=== PATIENT | male | born 1980 | race Caucasian/White ===

== ENCOUNTER 2021-11-03 08:37 | Emergency (ER) | payer OTHER, MEDICAID, SELFPAY ==
[2021-11-03 09:08] LABS: Add Manual Diff / Slide Review NO; Basophils Absolute Auto 100 /uL (0-100); Basophils Percent Auto 0.9 % (0-2); Eosinophils Absolute Auto 200 /uL (0-450); Eosinophils Percent Auto 3.7 % (2-4); Hemoglobin 14.3 g/dL (13.5-17.5); Lymphocytes Absolute Auto 1700 /uL (1100-4500); Lymphocytes Percent Auto 26.2 % (25-40); Mean Corpuscular HGB Conc 34.1 % (30-36); Monocytes Absolute Auto 500 /uL (0-900); Monocytes Percent Auto 7.2 % (3-14); Neutrophils Absolute Auto 4000 /uL (1500-7000); Platelet Count 145 X10^3/uL (150-400); Red Blood Cell Count 4.62 X10^6/uL (4.5-5.9); White Blood Cell Count 6.5 X10^3/uL (4.5-11.0)
[2021-11-03 09:14] LABS: Alanine Aminotransferase 21 IU/L (<50); Albumin 4.2 g/dL (3.5-5.0); Albumin Globulin Ratio 1.5 (1.0-2.8); Alkaline Phosphatase 60 U/L (38-126); Aspartate Aminotransferase 25 IU/L (17-59); BUN Creatinine Ratio 15.8 (6-22); Bilirubin Total 0.3 mg/dL (0.2-1.3); Blood Urea Nitrogen 15 mg/dL (9-20); Calcium 9.1 mg/dL (8.4-10.2); Carbon Dioxide 30 mmol/L (22-32); Chloride 108 mmol/L (98-107); Estimated Glomerular Filt Rate > 60 mL/min (>60); Globulin 2.8 g/dL (1.7-4.1); Glucose 103 mg/dL (70-100); HEMOLYSIS < 15 (0-50); Lipase 68 U/L (23-300); Potassium 4.4 mmol/L (3.4-5.1); Sodium 141 mmol/L (137-145)
--- NOTE | 2021-11-03 09:18 | ED.ABDPAIN ---
HPI - Abdominal Pain General Chief Complaint: Abdominal Pain Stated Complaint: inside lower right side pain Time Seen by Provider: 11/03/21 08:51 History of Present Illness HPI narrative: Patient is a 40-year-old male history of schizophrenia controlled with marijuana presenting with 4 days of right upper back pain. He denies any injury lifting. It is nonradiating. He has taken Aleve intermittently for without any relief. Not going away. He related have any abdominal pain. No painful or frequent urination. Related Data Home Medications Medication Instructions Recorded Confirmed gabapentin 300 mg capsule ##0 02/10/16 (Neurontin) naproxen 500 mg tablet (Naprosyn) PO #0 tabs 02/10/16 Previous Rx's Medication Instructions Recorded cyclobenzaprine 10 mg tablet 10 mg PO Q8HP PRN #20 tabs 02/10/16 prednisone 50 mg tablet 50 mg PO QDAY #5 tabs 02/10/16 meloxicam 15 mg tablet 15 mg PO DAILY PRN pain #20 tabs 11/03/21 Allergies Allergy/AdvReac Type Severity Reaction Status Date / Time No Known Drug Allergies Allergy Verified 11/03/21 09:26 Review of Systems Review of Systems Narrative: GENERAL: Denies chills, fatigue, malaise, fever, sweats, travel HEENT: Denies sinus pain, ear pain, sore throat, difficulty swallowing, neck pain RESPIRATORY: Denies dyspnea, cough, wheezing, hemoptysis, sputum. CARDIOVASCULAR: Denies chest pain, palpitations, orthopnea, edema GASTROINTESTINAL: See HPI : Denies dysuria, frequency, incontinence, hematuria, urinary retention, flank pain. MUSCULOSKELETAL: Denies weakness, joint pain, or bony pain SKIN: No rash, no erythema, no pruritus NEUROLOGIC: Denies weakness, dizziness, headache, numbness, change in speech, confusion PSYCHIATRIC: No concerning psychosocial issues. 12 point review of systems is negative except for those stated above and HPI Patient History Social History Smoking Status: Current every day smoker Exam Initial Vital Signs Initial Vital Signs: Vital Signs Temperature 98.2 F 11/03/21 09:26 Pulse Rate 66 11/03/21 09:26 Respiratory Rate 18 11/03/21 09:26 Blood Pressure 149/81 H 11/03/21 09:26 Pulse Oximetry 100 11/03/21 09:26 Oxygen Delivery Method 11/03/21 09:26 GENERAL: Alert 40-year-old male appears uncomfortable HEENT: Head atraumatic,EOMI, pupils reactive, face symmetric, moist mucous membranes CARDIOVASCULAR: Regular rate and rhythm without murmurs, rubs or gallops. RESPIRATORY: Breath sounds equal bilaterally, no wheezes rales or rhonchi. ABDOMEN: Soft, right upper quadrant pain Vazquez a right upper back and flank pain no guarding no rebound : No CVA tenderness EXTREMITIES: Normal range of motion, no clubbing or edema. Neurovascularly intact NEUROLOGICAL: Alert and oriented x4. SKIN: Warm, dry, no laceration, no petechiae, no rashes or lesions. Scores PERC Score Age greater than or equal to 50 years: No Heart rate greater than or equal to 100 bpm: No Room Air O2 Sat less than 95%: No Unilateral leg swelling: No Recent trauma or surgery: No Hemoptysis: No Prior PE or DVT: No Hormone Use: No Total PERC Score: 0 Course Orders Ordered: ED Orders 11/03/21 09:22 US abdomen limited Stat 11/03/21 10:33 CT abdomen pelvis wo con Stat Discontinued Medications Ketorolac Tromethamine (Ketorolac 30 Mg/Ml Vial) 15 mg IV NOW ONE Stop: 11/03/21 09:23 Last Admin: 11/03/21 09:36 Dose: 15 mg Documented By: RICHARD Vital Signs Vital signs: Vital Signs - 8 hr 11/03/21 10:30 11/03/21 12:53 11/03/21 12:55 Pulse Rate 56 L 55 L Respiratory Rate 18 16 Blood Pressure 136/85 138/80 Pulse Oximetry 100 100 Oxygen Delivery Method Room Air MDM - Abdominal Pain Lab Data Result diagrams: 11/03/21 08:55 11/03/21 08:55 Labs: Lab Results 11/03/21 11/03/21 Range/Units 08:55 08:55 WBC 6.5 (4.5-11.0) X10^3/uL RBC 4.62 (4.5-5.9) X10^6/uL Hgb 14.3 (13.5-17.5) g/dL Hct 42.0 (41-53) % MCV 91.0 (80-100) fL MCH 31.0 (26-34) PG MCHC 34.1 (30-36) % RDW 13.0 (11.6-14.8) % Plt Count 145 L (150-400) X10^3/uL Neut % (Auto) 62.0 (50-75) % Lymph % (Auto) 26.2 (25-40) % Evangeline % (Auto) 7.2 (3-14) % Eos % (Auto) 3.7 (2-4) % Baso % (Auto) 0.9 (0-2) % Neut # (Auto) 4000 (8764-7798) /uL Lymph # (Auto) 1700 (9942-7871) /uL Evangeline # (Auto) 500 (0-900) /uL Eos # (Auto) 200 (0-450) /uL Baso # (Auto) 100 (0-100) /uL Sodium 141 (137-145) mmol/L Potassium 4.4 (3.4-5.1) mmol/L Chloride 108 H (98-107) mmol/L Carbon Dioxide 30 (22-32) mmol/L BUN 15 (9-20) mg/dL Creatinine 0.95 (0.66-1.25) mg/dL Estimated GFR > 60 (>60) mL/min BUN/Creatinine Ratio 15.8 (6-22) Glucose 103 H (70-100) mg/dL Calcium 9.1 (8.4-10.2) mg/dL Total Bilirubin 0.3 (0.2-1.3) mg/dL AST 25 (17-59) IU/L ALT 21 (<50) IU/L Alkaline Phosphatase 60 (38-126) U/L Total Protein 7.0 (6.3-8.2) g/dL Albumin 4.2 (3.5-5.0) g/dL Globulin 2.8 (1.7-4.1) g/dL Albumin/Globulin Ratio 1.5 (1.0-2.8) Lipase 68 (23-300) U/L Point of care testing: Urine Dip Bedside Urine Glucose Negative Bedside Urine Bilirubin - Negative Bedside Urine Ketone - Negative Urine Specific [place] 1.020 Bedside Urine Occult Blood +/- Bedside Urine pH 6.0 Bedside Urine Protein - Negative Bedside Urine Urobilinogen - Negative Bedside Urine Nitrite - Negative Bedside Urine Leukocytes - Negative Esterase Imaging Data US - abdomen: Radiologist's Impression: Ultrasound Report Signed Patient: Kyree King MR#: [id number] : 1980 Acct:[id number] Age/Sex: 40 / M Date of Service: 11/03/21 Loc: ED Accession Number: [id number] ?? Procedure: US abdomen limited Ordering Provider: Zaira Miranda D.O. PROCEDURE:? US ABDOMEN LIMITED ? INDICATIONS:? ruq ? TECHNIQUE:? Real-time scanning was performed of the abdominal and retroperitoneal organs, with image documentation.? ? COMPARISON:? None. ? FINDINGS: ? Liver:? Homogeneous echotexture.? No evidence of focal mass lesion.? No intra hepatic biliary ductal dilatation ? Gallbladder:? Sonolucent without cholelithiasis.? No gallbladder wall thickening. No pericholecystic fluid or Anderson's sign. ? Common Bile Duct:? 3.6 mm. ? Pancreas:? Unremarkable as visualized ? IMPRESSION: ? 1. Unremarkable right upper quadrant ultrasound ? Approved by: Mikal Falk M.D. on 11/03/2021 at 9:39? CT scan - abdomen/pelvis: Radiologist's Impression: CT Scan Report Signed Patient: Kyree King MR#: [id number] : 1980 Acct:[id number] Age/Sex: 40 / M Date of Service: 11/03/21 Loc: ED Accession Number: [id number] ?? Procedure: CT abdomen pelvis wo con Ordering Provider: Zaira Miranda D.O. PROCEDURE:? CT ABDOMEN PELVIS WO CON ? INDICATIONS:? right upper anitha/flank pain ? TECHNIQUE:? After the administration of oral contrast, 5 mm thick sections acquired from the diaphragms to the symphysis.? 5 mm coronal and sagittal reformats were performed.? For radiation dose reduction, the following was used:? automated exposure control, adjustment of mA and/or kV according to patient size.? ? COMPARISON:? None. ? FINDINGS:? Image quality:? Excellent.? ? ABDOMEN:? Lung bases:? Lung bases are clear.? Heart size is normal.? ? Solid organs:? Liver is normal in size.? Gallbladder unremarkable .? Pancreas is normal in size.? Spleen is normal in size.? No adrenal nodules.? Both kidneys are normal in size, without hydronephrosis or nephrolithiasis.? ? Peritoneum and bowel:? Bowel loops demonstrate normal wall thickness and caliber.? No free fluid or air.? ? Nodes and vessels:? No retroperitoneal or mesenteric adenopathy by size criteria.? Aorta and inferior vena cava are normal in size.? ? Miscellaneous:? No ventral hernias.? ? ? PELVIS:? Genitourinary:? Bladder wall thickness is normal.? ? Miscellaneous:? No inguinal hernias or adenopathy.? ? Bones:? No suspicious bony lesions.? No vertebral body compression fractures.? Mild to moderate degenerative disc disease and arthropathy ? IMPRESSION:? ? 1. No acute noncontrast CT findings.? ? 2. Mild to moderate degenerative disc disease and arthropathy in the lower lumbar spine ? ? Approved by: Mikal Falk M.D. on 11/03/2021 at 11:13? [facility] Narrative Medical decision making narrative: Patient is describing pain right flank area and upper quadrant. Ultrasound and CT are negative. No evidence of his kidney infection. He is not septic. At this time no need for admission. Possible muscle strain. 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 Recommend trying meloxicam. Discharge Plan Departure Patient Disposition: Home Clinical Impression: Abdominal pain, Back pain Instructions: DI for Abdominal Pain-Adult, DI for Back Strain or Sprain Activity Restrictions/Additional Instructions: *You have been diagnosed with back pain/abdominal pain *What to do: Increase activity as tolerated try heating pad stretching *Continue to take medications as directed Meloxicam 15 mg once a day (do not take other NSAIDs such as ibuprofen, Motrin, naproxen, NaprosynAleve, Advil etc) May take Tylenol 1000 mg every 6 hours if needed for [id number] *Follow up with your primary care provider in 2-3 days or call [phone] *Return to ER if you should have increasing his pain, vomiting, fever or any new, worsening or concerning symptoms Prescriptions: New meloxicam 15 mg tablet 15 mg PO DAILY PRN (Reason: pain) Qty: 20 0RF No Action gabapentin [Neurontin] 300 mg capsule Qty: 0 naproxen [Naprosyn] 500 mg tablet PO Qty: 0 cyclobenzaprine 10 MG tablet 10 mg PO Q8HP PRNQty: 20 0RF prednisone 50 MG tablet 50 mg PO QDAY Qty: 5 0RF Visit Report Forms: Patient Portal/API
--- NOTE | 2021-11-03 09:22 | DI.US.S_ITS ---
PROCEDURE: US ABDOMEN LIMITED INDICATIONS: ruq TECHNIQUE: Real-time scanning was performed of the abdominal and retroperitoneal organs, with image documentation. COMPARISON: None. FINDINGS: Liver: Homogeneous echotexture. No evidence of focal mass lesion. No intra hepatic biliary ductal dilatation Gallbladder: Sonolucent without cholelithiasis. No gallbladder wall thickening. No pericholecystic fluid or Anderson's sign. Common Bile Duct: 3.6 mm. Pancreas: Unremarkable as visualized IMPRESSION: 1. Unremarkable right upper quadrant ultrasound Approved by: Mikal Falk M.D. on 11/03/2021 at 9:39
[2021-11-03 09:26] VITALS: BP 149/81; PULSE 66; RESP 18; TEMP 36.8; O2SAT 100; BMI 27.2
[2021-11-03] MEDS: KETOROLAC 30 MG/ML VIAL 15 MG IV (09:36)
[2021-11-03 10:30] VITALS: BP 136/85; PULSE 56; RESP 18; O2SAT 100
--- NOTE | 2021-11-03 10:33 | DI.CT.S_ITS ---
PROCEDURE: CT ABDOMEN PELVIS WO CON INDICATIONS: right upper anitha/flank pain TECHNIQUE: After the administration of oral contrast, 5 mm thick sections acquired from the diaphragms to the symphysis. 5 mm coronal and sagittal reformats were performed. For radiation dose reduction, the following was used: automated exposure control, adjustment of mA and/or kV according to patient size. COMPARISON: None. FINDINGS: Image quality: Excellent. ABDOMEN: Lung bases: Lung bases are clear. Heart size is normal. Solid organs: Liver is normal in size. Gallbladder unremarkable . Pancreas is normal in size. Spleen is normal in size. No adrenal nodules. Both kidneys are normal in size, without hydronephrosis or nephrolithiasis. Peritoneum and bowel: Bowel loops demonstrate normal wall thickness and caliber. No free fluid or air. Nodes and vessels: No retroperitoneal or mesenteric adenopathy by size criteria. Aorta and inferior vena cava are normal in size. Miscellaneous: No ventral hernias. PELVIS: Genitourinary: Bladder wall thickness is normal. Miscellaneous: No inguinal hernias or adenopathy. Bones: No suspicious bony lesions. No vertebral body compression fractures. Mild to moderate degenerative disc disease and arthropathy IMPRESSION: 1. No acute noncontrast CT findings. 2. Mild to moderate degenerative disc disease and arthropathy in the lower lumbar spine Approved by: Mikal Falk M.D. on 11/03/2021 at 11:13
[2021-11-03 12:53] VITALS: BP 138/80; PULSE 55; O2SAT 100
[2021-11-03 12:55] VITALS: RESP 16
== END 2021-11-03 13:00 | disposition home or self-care (01) ==
PROVIDERS: Emergency Provider Emergency Medicine
DX: R10.11 Right upper quadrant pain (principal); M54.6 Pain in thoracic spine
CPT/HCPCS: 36415; 74176; 76705; 80053; 81003; 83690; 85025; 96374; 99284; J1885